=== PATIENT | male | born 1970 | race American Indian/Alaskan Native ===

== ENCOUNTER 2021-05-04 05:18 | Emergency (ER) | payer OTHER ==
[2021-05-04 05:56] VITALS: BP 140/89
--- NOTE | 2021-05-04 06:17 | XRay Report ---
CHEST 2 VIEWS INDICATION / CLINICAL INFORMATION: chest pain. COMPARISON: None available. FINDINGS: SUPPORT DEVICES: None. HEART / MEDIASTINUM: No significant abnormality. LUNGS / PLEURA: No significant pulmonary or pleural abnormality. No pneumothorax. ADDITIONAL FINDINGS: No significant additional findings. IMPRESSION: 1. No acute findings. Signer Name: Osiel Aiken MD Signed: 05/04/2021 6:13 AM Workstation Name: [id number]
[2021-05-04 06:24] LABS: Basophils % (Auto) 0.4 % (0.0-1.8); Eosinophils # (Auto) 0.3 K/mm3 (0.0-0.4); Eosinophils % (Auto) 4.9 % (0.0-4.3); Hematocrit 41.1 % (35.5-45.6); Hemoglobin 13.7 gm/dl (11.8-15.2); Lymphocytes # (Auto) 2.2 K/mm3 (1.2-5.4); Mean Corpuscular HGB Conc 33 % (32-34); Mean Corpuscular Volume 83 fl (84-94); Monocytes # (Auto) 0.6 K/mm3 (0.0-0.8); Monocytes % (Auto) 10.6 % (0.0-7.3); Platelet Count 252 K/mm3 (140-440); Red Blood Count 4.97 M/mm3 (3.65-5.03); Red Cell Distribution Width 14.9 % (13.2-15.2)
--- NOTE | 2021-05-04 06:38 | Emergency Department Report ---
ED Chest Pain HPI - General Chief Complaint: Chest Pain Stated Complaint: CHEST PAIN Time Seen by Provider: 05/04/21 06:30 Source: patient Mode of arrival: Ambulatory Limitations: No Limitations - History of Present Illness Initial Comments: 51-year-old -[place] male presents to the emergency department with a complaint of having some midsternal chest discomfort that started about 4:15 in the morning upon waking and going to the bathroom. The chest pain has currently resolved. However, when it occurred the patient felt as if it worsened with movements of his arms or torso. He denies any shortness of breath, fever, back pain, lower extremity swelling, nausea, vomiting or diaphoresis. He has a past medical history of hypertension and hyperlipidemia. He has not taken anything for symptoms prior to presentation. He follows with [facility] for PCP. No tobacco or illicit drug use. No recent travel or sick contacts at home. - Related Data Allergies Allergy/AdvReac Type Severity Reaction Status Date / Time Penicillins Allergy Unknown Verified 05/04/21 05:34 Heart Score - HEART Score History: Slightly suspicious EKG: Normal Age: 45-65 Risk factors: 1-2 risk factors Troponin: < normal limit HEART Score: 2 - EKG Read Time Time EKG Completed: 05:27 EKG Read Time: 05:29 - Critical Actions Critical Actions: 0-3 pts:0.9-1.7%risk of adverse cardiac event.Candidate for d ischarge ED Review of Systems ROS: Stated complaint: CHEST PAIN Other details as noted in HPI Comment: All other systems reviewed and negative Constitutional: denies: chills, fever Eyes: denies: eye pain, vision change ENT: denies: ear pain, throat pain Respiratory: denies: cough, shortness of breath Cardiovascular: chest pain. denies: palpitations Gastrointestinal: denies: abdominal pain, vomiting Genitourinary: denies: dysuria, discharge Musculoskeletal: denies: back pain, arthralgia Skin: denies: rash, lesions Neurological: denies: headache, weakness ED Past Medical Hx - Past Medical History Previous Medical History?: No - Surgical History Past Surgical History?: No ED Physical Exam - General Limitations: No Limitations - Other Other exam information: GENERAL: The patient is well-developed well-nourished. HENT: Normocephalic. Atraumatic. Patient has moist mucous membranes. EYES: Extraocular motions are intact. NECK: Supple. Trachea is midline. CHEST/LUNGS: Clear to auscultation. There is no respiratory distress noted. There is some reproducible midsternal chest wall tenderness to palpation without crepitus or deformity. HEART/CARDIOVASCULAR: Regular. There is no tachycardia. There is no murmur. ABDOMEN: Abdomen is soft, nontender. Patient has normal bowel sounds. SKIN: Skin is warm and dry. NEURO: The patient is awake, alert, and oriented. The patient is cooperative. The patient has no focal neurologic deficits. Normal speech. MUSCULOSKELETAL: There is no tenderness or deformity. There is no limitation range of motion. ED Course Vital Signs 05/04/21 05:55 Temperature 98.0 F Pulse Rate 85 Respiratory 18 Rate Blood Pressure 140/89 O2 Sat by Pulse 95 Oximetry JAGRUTI score - Jagruti Score Age > 65: (0) No Aspirin use within the Past 7 Days: (0) No 3 or more CAD Risk Factors: (0) No 2 or more Angina events in past 24 hrs: (1) Yes Known CAD with more than 50% Stenosis: (0) No Elevated Cardiac Markers: (0) No ST Deviation Greater than 0.5mm: (0) No JAGRUTI Score: 1 ED Medical Decision Making - Lab Data Result diagrams: 05/04/21 06:02 05/04/21 06:02 Lab Results 05/04/21 05/04/21 Range/Units 06:02 06:02 WBC 5.7 (4.5-11.0) K/mm3 RBC 4.97 (3.65-5.03) M/mm3 Hgb 13.7 (11.8-15.2) gm/dl Hct 41.1 (35.5-45.6) % MCV 83 L (84-94) fl MCH 28 (28-32) pg MCHC 33 (32-34) % RDW 14.9 (13.2-15.2) % Plt Count 252 (140-440) K/mm3 Lymph % (Auto) 39.0 H (13.4-35.0) % Amelia % (Auto) 10.6 H (0.0-7.3) % Eos % (Auto) 4.9 H (0.0-4.3) % Baso % (Auto) 0.4 (0.0-1.8) % Lymph # (Auto) 2.2 (1.2-5.4) K/mm3 Amelia # (Auto) 0.6 (0.0-0.8) K/mm3 Eos # (Auto) 0.3 (0.0-0.4) K/mm3 Baso # (Auto) 0.0 (0.0-0.1) K/mm3 Seg Neutrophils % 45.1 (40.0-70.0) % Seg Neutrophils # 2.6 (1.8-7.7) K/mm3 Sodium 139 (137-145) mmol/L Potassium 4.0 (3.6-5.0) mmol/L Chloride 103.1 (98-107) mmol/L Carbon Dioxide 24 (22-30) mmol/L Anion Gap 16 mmol/L BUN 23 H (9-20) mg/dL Creatinine 1.3 (0.8-1.3) mg/dL Estimated GFR 59 ml/min BUN/Creatinine Ratio 18 % Glucose 124 H (75-100) mg/dL Calcium 9.6 (8.4-10.2) mg/dL Total Bilirubin 0.50 (0.1-1.2) mg/dL AST 30 (5-40) units/L ALT 44 (7-56) units/L Alkaline Phosphatase 85 (35-129) units/L Troponin T < 0.010 (0.00-0.029) ng/mL Total Protein 8.2 (6.3-8.2) g/dL Albumin 4.7 (3.9-5) g/dL Albumin/Globulin Ratio 1.3 % - EKG Data -: EKG Interpreted by Hi EKG shows normal: sinus rhythm, axis, intervals, QRS complexes, ST-T waves Rate: normal - EKG Data When compared to previous EKG there are: previous EKG unavailable Interpretation: normal EKG - Radiology Data Radiology results: image reviewed interpreted by id: Chest x-ray does not show any acute process. There are no pleural effusions, obvious pneumonia and there is no pneumothorax. - Medical Decision Making This patient presents to the emergency department with some midsternal chest discomfort that started about 4:15 in the morning, few hours prior to presentation. On examination heart and lung sounds are normal to auscultation and the patient does not appear in any respiratory or acute distress. There is some reproducible chest wall tenderness to palpation without crepitus or deformity. EKG does not have any morphology consistent with ST elevation myocardial infarction or any arrhythmia. Chest x-ray does not show any pneumonia, pleural effusions, pneumothorax, widened mediastinum, or any other acute process. Patient's labs have been mostly unremarkable including CBC, metabolic panel and a negative troponin. The patient is low on the heart and JAGRUTI score. He is low on the Wells score criteria negative on the pulmonary embolism rule out criteria. For these reasons the patient appears safe for discharge home at this time. His contact information has been sent over to the [facility] and [facility] [place], and someone from their office should be contacting him shortly for close outpatient follow-up as part of our hospitals of his chest pain protocol. Critical Care Time: No Critical care attestation.: If time is entered above; I have spent that time in minutes in the direct care of this critically ill patient, excluding procedure time. ED Disposition Clinical Impression: Chest pain Qualifiers: Chest pain type: unspecified Qualified Code(s): R07.9 - Chest pain, unspecified Disposition: 01 HOME / SELF CARE / HOMELESS Is pt being admited?: No Condition: Stable Instructions: Nonspecific Chest Pain, Adult, Chest Wall Pain Additional Instructions: Please follow-up with a primary care physician in the next few days. I am sending your contact information over to the [facility] er, and someone from their office should be contacting you shortly for close outpatient follow-up. Just in case, I am giving you a referral for one of their logistics supply officer, Dr. Skaggs. Return to the emergency department with any worsening of your symptoms, new or concerning symptoms not addressed during this current emergency department visit, or with any acute distress. Referrals: LORNA SKAGGS MD [Staff Physician] - 2-3 Days Time of Disposition: 07:53
[2021-05-04 06:43] LABS: Alanine Aminotransferase 44 units/L (7-56); Albumin 4.7 g/dL (3.9-5); BUN/Creatinine Ratio 18; Blood Urea Nitrogen 23 mg/dL (9-20); Calcium 9.6 mg/dL (8.4-10.2); Hemolysis Index 12
--- NOTE | 2021-05-04 14:19 | Electrocardiograph Report ---
[facility] Test Date: 2021-05-04 Test Time: 05:27:08 Pat Name: VICKI PATEL Department: Room: Gender: M [employer]ing Operator: [id number] : 1970 Requested By: REBECCA THOMPSON Order Number: [id number] Reading MD: Ronan Moeller Measurements Intervals [place] Rate: 83 P: 45 MI: 172 QRS: 26 QRSD: 84 T: -6 QT: 375 QTc: 442 Interpretive Statements Sinus rhythm No previous ECG available for comparison Electronically Signed On 05-04-2021 14:18:42 EDT by Ronan Moeller
== END 2021-05-04 08:15 | disposition home or self-care (01) ==
LOC: ED 05:18
DX: R07.9 Chest pain, unspecified (principal); Z88.0 Allergy status to penicillin
CPT/HCPCS: 36415; 71046; 80053; 84484; 85025; 93005; 99283